=== PATIENT | female | born 1980 | race Caucasian/White ===

== ENCOUNTER 2018-05-30 15:41 | Observation (INO) | payer OTHER ==
[~2018-05-30] VITALS: Ht 152.4 cm; Wt 93.8 kg
[2018-05-30] MEDS ORDERED: PREN1TAB71 PO (15:54)
[2018-05-30] MEDS ORDERED: FERR134T PO (15:55)
[2018-05-30 15:57] VITALS: BP 129/76; Ht 152.4 cm; Wt 93.8 kg
--- NOTE | 2018-05-30 16:07 | TRIAGE ---
OB Triage Datetime Report Generated by CPN: 05/30/2018 16:07 Datetime: 05/30/2018 16:00 Stage of : OB Triage Assessment Type: Triage Maternal Assessment Level of Consciousness: Fully Conscious DTR's/Clonus: DTRs 2+; No Clonus Headache: Denies Blurred Vision: No Respiratory Effort: Unlabored; Regular Rhythm; Equal Expansion Breath Sounds, Left: Clear and Equal Breath Sounds, Right: Clear and Equal Nausea/Vomiting: Denies RUQ Epigastric Pain: Denies Lower Extremities Edema: None Degree: None Upper Extremities Edema: None Degree: None Facial Edema: None Temperature Route: Oral Fall Risk Assessment History of Falling: (0) No Secondary Diagnosis: (0) No Ambulatory Aid: (0) Bedrest/Nurse Assist IV Therapy: (0) No Gait: (0) Normal/Bedrest/Immobile Mental Status: (0) Oriented to Own Ability Fall Score: 0 Fall Risk Score Definition: No Risk: No action required Labor Evaluation Monitor Mode: External Heart Rate FHR Baseline Rate: 135 Monitor Mode: External US Variability: Moderate 6-25 bpm Accelerations: 15X15 Category: Category I Datetime: 05/30/2018 14:26 EGA: 34.1 Time Provider Notified: 05/30/2018 16:05 Provider Notified: dr. richardson Datetime: 05/30/2018 14:25 Time of Arrival: 05/30/2018 15:35 Arrived By: Ambulatory Arrived From: Dr. Hartman Chief Complaint: sent from t clinic for r/o srom Movement: Present Contractions: Denies/Absent Rupture of Membranes: Ruptured Vaginal Bleeding: None Vaginal Discharge: Present Recent Sexual Intercouse: Denies Abdominal Trauma: Not Applicable Patient Complaints: Other Additional Patient Complaints: leaking Time Provider Notified: 05/30/2018 16:06 Provider Notified: dr. richardson
[2018-05-30] MEDS ORDERED: LACTATED RINGER'S 1,000 ML IV SCH (16:17)
--- NOTE | 2018-05-30 16:50 | HP ---
Date/Time of Note Date/Time of Note DATE: 05/30/18 TIME: 16:48 OB - History Hx of Present Free Text/Dictation @34+wks GA with Low KAI ,She reports fluid loss : 1 Para: 0 Care: Good Care Ultrasounds: Normal mid trimester US Obstetrical Complications: None Medical Complications: None Past Family/Social History * Past Medical, Surgical, Family and Obstetric Histories reviewed from chart. OB Admission Exam Vital Signs Vital Signs Vital Signs Date Temp Pulse Resp B/P (MAP) Pulse Ox O2 O2 Flow FiO2 Time Delivery Rate 05/30/18 98.6 129/76 15:57 (93) Physical Exam Abdomen: WNL Extremities: Normal Cervical Dilatation: None Effacement: 0% Station: Ballotable Heart Rate: 140's Accelerations: Accelerations Present Decelerations: No Decelerations Varibility: Moderate OB Assessment/Plan Reason for admission: observation Plan: Expectant Management Other plan: IV Hydration Rom plus test Perinatology consult CHENG VELAZQUEZ M.D. May 30, 2018 16:50
--- NOTE | 2018-05-30 20:06 | HP ---
Date/Time of Note Date/Time of Note DATE: 05/30/18 TIME: 19:57 OB - History Hx of Present Free Text/Dictation 37 YO G1 with EDC 07/10/2018 with IUP at 34 weeks who reported to T office for antepartum testing. indication for APT was + AFP (+ for NTD). KAI was 5 cm. she also has placenta previa. she reported small amount of loss of fluid per vagina, but speculum exam was negative for Nitrazine and Pooling and ROM+ test was negative. she denies vaginal bleeding, uterine contractions. she reports good FM. Care: Good Care Ultrasounds: Normal mid trimester US Obstetrical Complications: None, Other (AFP + and placenta previa) Medical Complications: None Past Family/Social History * Past Medical, Surgical, Family and Obstetric Histories reviewed from chart. OB Admission Exam Vital Signs Vital Signs Vital Signs Date Temp Pulse Resp B/P (MAP) Pulse Ox O2 O2 Flow FiO2 Time Delivery Rate 05/30/18 98.6 129/76 15:57 (93) Physical Exam HEENT: WNL Heart: Rhythm Normal Lungs: Clear, Equal Abdomen: WNL Extremities: Normal Reflexes: Normal OB Assessment/Plan Other Assessment: IUP at 34 weeks Placenta Previa Oligohydramnios Other plan: IV hydration and then repeat KAI ALECIA RIGGINS MD May 30, 2018 20:05
[2018-05-31] MEDS ORDERED: FERROUS SULFATE (EC) 325 MG TAB PO SCH (09:00)
[2018-05-31] MEDS ORDERED: PRENATAL VITAMIN PO SCH (09:00)
--- NOTE | 2018-06-01 07:25 | DS ---
Date/Time of Note Date/Time of Note DATE: 06/01/18 TIME: 07:22 Obstetrical Discharge Record Final Diagnosis Final Diagnosis: not delivered Other Final Diagnosis patient with IUP at 34 weeks who reported to NST office and was found to have KAI 4 cm. Exam was negative for PPROM and ROM Plus was also negative. she received IV and oral hydration. repeat KAI was normal. she denies vaginal bleeding or UCs. she only had vaginal discharge, which was misinterpreted in the records apparently by [facility]. Complications Other (AFP +) Augmentation: No Induction: No Rupture of Membranes: No Condition on Discharge Physical Assessment Voiding: Yes Bowel Movement: Yes Breast: Soft, non-tender, Filling Fundus: Firm Abdomen and Incision: soft, gravid, not tender Calf Tenderness: No Patient Condition: Good ALECIA RIGGINS MD Jun 01, 2018 07:25
== END 2018-05-30 23:46 | disposition home or self-care (01) ==
LOC: OBT 15:41 → L-D 15:43 → OBT 16:05 → L-D 16:05 → INTOOBSV 16:05 → L-D 23:18
PROVIDERS: ADMIT Specialist; ATTEND Specialist
DX: O60.03 Preterm labor without delivery, third trimester (principal); O44.03 Complete placenta previa NOS or without hemorrhage, third trimester; O41.03X0 Oligohydramnios, third trimester, not applicable or unspecified; Z3A.34 34 weeks gestation of pregnancy
CPT/HCPCS: 76815; 84112; J7120; Z7500; 99217; G0378; G0463

== ENCOUNTER 2018-06-01 12:10 | Inpatient (IN) | payer OTHER ==
[~2018-06-01] VITALS: Ht 152.4 cm; Wt 93.0 kg
[~2018-06-01 12:10] MED LIST: FERR134T PO; PREN1TAB71 PO
[2018-06-01] MEDS ORDERED: AL HYDROX/MG HYDROX/SIMETH 30 ML CUP PO PRN (13:00)
[2018-06-01] MEDS ORDERED: ACETAMINOPHEN 325 MG TAB PO PRN (13:00)
[2018-06-01 13:03] VITALS: Ht 152.4 cm; Wt 93.0 kg
[2018-06-01 13:05] VITALS: BP 118/79; PULSE 114; RESP 20
[2018-06-01] MEDS: LACTATED RINGER'S 1,000 ML IV SCH ×2 (13:10→19:10)
[2018-06-01] MEDS: DEXAMETHASONE 4 MG/ML 5 ML INJ IM SCH (14:34)
[2018-06-01] MEDS: FERROUS SULFATE (EC) 325 MG TAB PO SCH (17:02)
[2018-06-01] MEDS: PRENATAL VITAMIN PO SCH (17:02)
[2018-06-02] MEDS: DEXAMETHASONE 4 MG/ML 5 ML INJ IM SCH ×2 (02:19→14:15)
[2018-06-02] MEDS: LACTATED RINGER'S 1,000 ML IV SCH ×3 (02:26→22:32)
[2018-06-02] MEDS: FERROUS SULFATE (EC) 325 MG TAB PO SCH (10:06)
[2018-06-02] MEDS: DOCUSATE SODIUM 100 MG CAP PO SCH (10:08)
[2018-06-02] MEDS: PRENATAL VITAMIN PO SCH (10:16)
--- NOTE | 2018-06-02 15:24 | HP ---
Date/Time of Note Date/Time of Note DATE: 06/02/18 TIME: 15:12 OB - History Hx of Present Free Text/Dictation 37 YO G1 with IUP at 34.4 weeks and EDC 07/10/2018. her is complicated by + AFP and placenta previa. on her last sono with [facility] perinatologist (Dr. Carter), she also had evolving IUGR and KAI 5.9 cm and anterior complete previa and breech. Dr. Carter recommended to admit patient and give steroids and proceed with . patient has an important appointment with immigration on 06/05 and she would like to postpone the delivery until then. Care: Good Care Ultrasounds: Abnormal US findings (placenta previa and growth restriction and KAI 5.9 cm) Medical Complications: None Past Family/Social History * Past Medical, Surgical, Family and Obstetric Histories reviewed from chart. OB Admission Exam Vital Signs Vital Signs Vital Signs Date Temp Pulse Resp B/P (MAP) Pulse Ox O2 O2 Flow FiO2 Time Delivery Rate 06/01/18 98.8 114 20 118/79 Room Air 13:05 (92) Physical Exam HEENT: WNL Heart: Rhythm Normal Lungs: Clear, Equal Abdomen: WNL Extremities: Normal Reflexes: Normal Last 72 hours Lab Results CBC & BMP 06/01/18 13:15 OB Assessment/Plan Other Assessment: IUP 34.4 weeks KAI 5.9 cm placenta previa Breech growth restriction Other plan: Steroids. then proceed with delivery risks of leaving the hospital AMA d/w pt and her partner. they have a very good understanding of why the is high risk and potential risks of leaving AMA including bleeding or IUFD. I discussed with the patient and her partner the risks, benefits, indications, and alternatives of procedure including but not limited to risks of infection, bleeding, damage to other organs, bowel, bladder, hernia formation, scar formation, possibility of blood transfusion, possible need for emergency hysterectomy. I specifically explained that they are at higher risk for blood transfusion and hysterectomy. She was allowed to ask questions. All her questions were answered. Informed consent has been obtained. ALECIA RIGGINS MD Jun 02, 2018 15:23
[2018-06-03] MEDS: DEXAMETHASONE 4 MG/ML 5 ML INJ IM SCH (02:07)
[2018-06-03] MEDS: LACTATED RINGER'S 1,000 ML IV SCH ×3 (07:18→22:38)
[2018-06-03] MEDS: PRENATAL VITAMIN PO SCH (10:29)
[2018-06-03] MEDS: DOCUSATE SODIUM 100 MG CAP PO SCH (10:29)
[2018-06-03] MEDS: FERROUS SULFATE (EC) 325 MG TAB PO SCH (10:29)
[2018-06-04] MEDS: LACTATED RINGER'S 1,000 ML IV SCH ×2 (08:32→16:00)
[2018-06-04] MEDS: PRENATAL VITAMIN PO SCH (08:36)
[2018-06-04] MEDS: DOCUSATE SODIUM 100 MG CAP PO SCH (08:36)
--- NOTE | 2018-06-04 08:50 | DS ---
Date/Time of Note Date/Time of Note DATE: 06/04/18 TIME: 08:45 Obstetrical Discharge Record Final Diagnosis Final Diagnosis: not delivered Other Final Diagnosis 37 YO G1 with IUP at 34.4 weeks and EDC 07/10/2018. her is complicated by + AFP and placenta previa. on her last sono with [facility] perinatologist (Dr. Carter), she also had evolving IUGR and KAI 5.9 cm and anterior complete previa and breech. Dr. Carter recommended to admit patient and give steroids and proceed with . patient has an important appointment with immigration on 06/05 and she would like to postpone the delivery until then. I spoke to Dr. Carter regarding this issue. Dr. Carter agrees that it is reasonable to postpone the delivery one more day. I explained the situation to patient in her holy cross language using RN who spoke Serbian. she understands why she needs to deliver prematurely and she is is aware of he risks to her health as well as risk of IUFD. she believes missing the immigration appointment will have severe and far reaching consequences. she is making an informed decision to postpone the delivery until tomorrow. Complications Other (IUGR, Placenta previa, Oligohydramnios) Rupture of Membranes: No Condition on Discharge Physical Assessment Voiding: Yes Bowel Movement: Yes Breast: Soft, non-tender, Filling, Other (soft, gravid) Calf Tenderness: No Patient Condition: Good ALECIA RIGGINS MD Jun 04, 2018 08:50
[2018-06-04] MEDS: FERROUS SULFATE (EC) 325 MG TAB PO SCH (16:00)
== END 2018-06-04 18:43 | disposition home or self-care (01) | DRG 832 ==
LOC: L-D 12:10 → EDSTATUS 07-10 12:09
PROVIDERS: ADMIT Specialist; ATTEND Specialist
DX: O44.03 Complete placenta previa NOS or without hemorrhage, third trimester (principal); O41.03X0 Oligohydramnios, third trimester, not applicable or unspecified; O36.5930 Maternal care for other known or suspected poor fetal growth, third trimester, not applicable or unspecified; O32.1XX0 Maternal care for breech presentation, not applicable or unspecified; O09.513 Supervision of elderly primigravida, third trimester; Z3A.34 34 weeks gestation of pregnancy
CPT/HCPCS: 85025; 85610; 85730; 86592; 86850; 86900; 86901; 87340; J1100; J7120

== ENCOUNTER 2018-06-05 11:19 | Inpatient (IN) | payer OTHER ==
[~2018-06-05] VITALS: Ht 152.4 cm; Wt 95.5 kg
[~2018-06-05 11:19] MED LIST changes: +CARBOPROST 250 MCG INJ ONE; +METHYLERGONOVINE 0.2 MG INJ ONE; +OXYTOCIN 30 UNITS/LR 500 ML BAG IV ONE
[2018-06-05] MEDS ORDERED: CARBOPROST 250 MCG INJ IM PRN (12:00)
[2018-06-05] MEDS ORDERED: OXYTOCIN 30 UNITS/LR 500 ML IV PRN (12:00)
[2018-06-05] MEDS ORDERED: MISOPROSTOL 200 MCG TAB PR PRN ×2 (12:00→18:30)
[2018-06-05] MEDS ORDERED: CEFAZOLIN 2 GM/50 ML (PMX) 50 ML IVPB SCH (12:00)
[2018-06-05] MEDS ORDERED: METHYLERGONOVINE 0.2 MG INJ IM PRN (12:00)
[2018-06-05 12:20] VITALS: BP 102/65; PULSE 98; RESP 18
[2018-06-05] MEDS ORDERED: LACTATED RINGER'S 1,000 ML IV SCH ×2 (12:40→18:28)
--- NOTE | 2018-06-05 14:31 | NSTRPT ---
NST Information Datetime Report Generated by CPN: 06/05/2018 14:31 Datetime: 05/30/2018 14:26 NST Information EGA: 34.1 Datetime: 05/30/2018 13:37 Test Number: 1 Time on Monitor: 05/30/2018 14:20 Time off Monitor: 05/30/2018 14:42 NST Duration (Min): 22 Reason for NST: Other Reason for NST Other: Abnormal AFP Test and Monitor Explained: Monitor Explained; Test Explained; Verbalized Understanding Pulse: 114 Resp: 18 SBP: 148 DBP: 82 Test Evaluation NST Interventions: Reposition Patient Patient States Movement: Present Contraction Frequency: NONE FHR Baseline : 145 Variability: Moderate 6-25bpm Accelerations: 15X15 Decelerations: None FHR Category: Category I NST Results: Reactive Comments: pt to u/s. KAI 5.4cm. [facility]. Electronically Signed By E-Signature: with User ID: [id number]
--- NOTE | 2018-06-05 17:44 | PREAC ---
Date/Time of Note Date/Time of Note DATE: 06/05/18 TIME: 17:42 Anesthesia Eval and Record Evaluation Time Pre-Procedure Interview DATE: 06/05/18 TIME: 17:42 Age 37 Sex female NPO: 8 hrs Preoperative diagnosis complete previa Planned procedure c section Past Medical History Past Medical History: Includes GI: Obesity Surgery & Anesthesia Issues No known issue Meds Anticoagulation: No Beta Abida within 24 hr: No Reason Beta Abida not given: Pt. not on B-Abida Reported Medications Ferrous Sulfate (Iron) 134 Mg Tablet, 134 MG PO, TAB 05/30/18 Vit No.130/Iron/FA ( Tablet) 1 Each Tablet, 1 EACH PO 05/30/18 Current Medications Cefazolin Sodium/ Dextrose 50 ml @ 100 mls/hr ONCE IVPB ; Start 06/05/18 at 12:00 Oxytocin/Lactated Ringer's 500 ml @ 125 mls/hr POST IV ; Start 06/05/18 at 12:00 Oxytocin/Lactated Ringer's 500 ml @ 0 mls/hr ONCE PRN IV .VAGINAL BLEEDING; Start 06/05/18 at 12:00 Methylergonovine Maleate (Methergine) 0.2 mg ONCE PRN IM .VAGINAL BLEEDING; Start 06/05/18 at 12:00 Carboprost Tromethamine (Hemabate) 250 mcg ONCE PRN IM .VAGINAL BLEEDING; Start 06/05/18 at 12:00 Misoprostol (Cytotec) 1,000 mcg ONCE PRN IA .VAGINAL BLEEDING; Start 06/05/18 at 12:00 Lactated Ringer's 1,000 ml @ 125 mls/hr Q8H IV ; Start 06/05/18 at 12:40 Meds reviewed: Yes Allergies Coded Allergies: No Known Drug Allergies (Verified Allergy, Unknown, 05/30/18) Allergies Reviewed: Yes Labs/Studies Labs Reviewed: Reviewed by anesthesiologist Result Diagram: 06/05/18 1225 Laboratory Tests 06/05/18 12:25 Blood Bank Test 06/05/18 12:25 Antibody Screen NEGATIVE Blood Product Summary Counts Blood Type O POSITIVE Crossmatch Red Blood Cells Rh Immune Globulin Candidate NO test: N/A Pre-procedure Exam Last vitals Vital Signs Date Temp Pulse Resp B/P (MAP) Pulse Ox O2 O2 Flow FiO2 Time Delivery Rate 06/05/18 97.8 98 18 102/65 96 Room Air 12:20 (77) Airway: Adequate mouth opening, Adequate thyromental dist Mallampati: Mallampati IV Teeth: Normal Lung: Normal Heart: Normal ASA Physical Status ASA physical status: 2 Emergency: None Pre-operative Attestations Prior to commencing anesthesia and surgery, the patient was re-evaluated, there was verification of: *The patient's identity *The results of appropriate recent lab work and preoperative vital signs *The above evaluation not changing prior to induction *Anesthetic plan, risk benefits, alternative and complications discussed with patient/family; questions answered; patient/family understands, accepts and wishes to proceed. JAYDE GANDHI DO Jun 05, 2018 17:43
--- NOTE | 2018-06-05 18:28 | HP ---
Date/Time of Note Date/Time of Note DATE: 06/05/18 TIME: 18:22 OB - History Hx of Present Free Text/Dictation 37 YO G1 with IUP at 35 weeks and EDC 07/10/2018. her is complicated by + AFP and placenta previa. on her last sono with [facility] perinatologist (Dr. Carter), she also had evolving IUGR and KAI 5.9 cm and anterior complete previa and breech. Dr. Carter recommended to admit patient and give steroids and proceed with . Care: Good Care Ultrasounds: Other (placenta previa, oligo, breech, growth restriction) Obstetrical Complications: Growth Restriction, Other (placenta previa, oligo, breech, growth restriction) Medical Complications: None Past Family/Social History * Past Medical, Surgical, Family and Obstetric Histories reviewed from chart. OB Admission Exam Vital Signs Vital Signs Vital Signs Date Temp Pulse Resp B/P (MAP) Pulse Ox O2 O2 Flow FiO2 Time Delivery Rate 06/05/18 97.8 98 18 102/65 96 Room Air 12:20 (77) Physical Exam HEENT: WNL Heart: Rhythm Normal Lungs: Clear, Equal Abdomen: WNL Extremities: Normal Reflexes: Normal Last 72 hours Lab Results CBC & BMP 06/05/18 12:25 OB Assessment/Plan Other Assessment: IUP 35 weeks placenta previa oligohydramnios breech growth restriction Dr. Carter recommended to proceed with deliver at this time Plan: Section Other plan: I discussed with the patient the risks, benefits, indications, and alternatives of procedure including but not limited to risks of infection, bleeding, damage to other organs, bowel, bladder, hernia formation, scar formation, possibility of blood transfusion, possible need for emergency hysterectomy. I specifically explained to patient that she is at higher risk for blood transfusion and emergency hysterectomy due to placenta previa. She was allowed to ask questions. All her questions were answered. Informed consent has been obtained. ALECIA RIGGINS MD Jun 05, 2018 18:28
[2018-06-05] MEDS ORDERED: NA PHOSPHATE/BIPHOS 133 ML ENEMA PR PRN (18:30)
[2018-06-05] MEDS ORDERED: OXYCODONE/ACETAMINOPHEN (5/325) TAB PO PRN (18:30)
[2018-06-05] MEDS ORDERED: morphine SULFATE/PF (10 MG/10 ML) INJ ONE (18:33)
[2018-06-05] MEDS ORDERED: METOCLOPRAMIDE 10 MG INJ ONE (18:48)
[2018-06-05] MEDS ORDERED: ONDANSETRON 4 MG INJ ONE (18:48)
[2018-06-05] MEDS ORDERED: FAMOTIDINE 20 MG INJ ONE (18:49)
[2018-06-05] MEDS ORDERED: DEXAMETHASONE 4 MG/ML 1 ML INJ ONE (18:49)
[2018-06-05] MEDS ORDERED: PHENYLephrine (100 MCG/ML) 5ML SYG ONE (18:50)
[2018-06-05] MEDS ORDERED: MIDAZOLAM 1 MG/ML 2 ML INJ ONE (18:52)
[2018-06-05] MEDS ORDERED: NALOXONE (0.4 MG/ML) INJ IV PRN (19:30)
[2018-06-05] MEDS ORDERED: ONDANSETRON 4 MG INJ IV PRN (19:30)
[2018-06-05] MEDS ORDERED: HYDROmorphONE 0.5 MG/0.5 ML SYG IV PRN ×2 (19:30)
[2018-06-05] MEDS ORDERED: DIPHENHYDRAMINE 50 MG INJ IV PRN (19:30)
[2018-06-05] MEDS ORDERED: ZOLPIDEM 5 MG TAB PO PRN (19:30)
[2018-06-05] MEDS: OXYTOCIN 30 UNITS/LR 500 ML IV SCH (19:58)
[2018-06-05] MEDS ORDERED: DIPHENOXYLATE/ATROPINE TAB PO PRN (20:00)
--- NOTE | 2018-06-05 20:01 | OPR ---
Date/Time of Note Date/Time of Note DATE: 06/05/18 TIME: 19:43 Operative Report Procedure Date: Jun 05, 2018 Preoperative Diagnosis IUP at 35 weeks Placenta Previa Oligohydramnios Growth restriction Dr. Carter recommended to proceed with Delivery Postoperative Diagnosis Same Dense pelvic adhesions (see Findings) Operation/Procedure Performed Primary Delivery Surgeon Stephanie Parra MD Welder Apprentice Arc Dr. Rikki Saleh Anesthesia Type: spinal Anesthesiologist: JADYE GANDHI DO Estimated Blood Loss: other (700) Transfusion none Specimen none Grafts/Implants none Tubes/Drains Alvarez Cath Complications none Pt Condition Post Procedure: stable Disposition: PACU Procedure Description Findings: Right ovary is densely adherent on the anterior surface of the uterus. the right fallopian tube was traveling under the ovary and the fimbriated portion could be visualized. Left tube was adherent to left ovary. Left Ovary was also adherent to uterus but was not misplaced like the right the ovary. Serosa of the uterus looked different as if covered by a filmy layer. This is a very unusual finding and obviously was due to either severe PID and/or severe endometriosis in the past. These findings were explained to patient. Consent: The risks, benefits, indications, alternatives of procedure including, but not limited to risk of infection, bleeding, damage to other organs, bowel, bladder, hernia formation, scar formation, possibility of blood transfusions were discussed with the patient. She was allowed to ask questions. All her questions were answered. Informed consent was obtained. DESCRIPTION OF PROCEDURE: She was taken to the operating room. Spinal anesthesia was induced. She was prepped and draped in the usual sterile fashion. Surgical time out one. Anesthesia was tested to be adequate. With permission from anesthesiologist, a knife was used to make a Pfannenstiel skin incision. The incision was taken down in layers. The fascia was cut, undermined and from the underlying muscle using sharp and blunt dissection. All the bleeders were cauterized. Peritoneum was entered bluntly. A low transverse incision was developed over the uterus. Complete previa noted and I had to go through the placenta to deliver the baby. Amniotic fluid was clear and adequate. A viable female infant in double footling breech presentation was delivered without any difficulty. The cord was clamped and cut, handed to awaiting team. Placenta was then delivered. Uterus was exteriorized, wrapped around a moist lap. Inside uterus was cleaned using a dry lap. All residual membranes were removed. The uterine incision was then closed using #1 Monocryl in 2 layers. We noticed that the right ovary is densely adherent on the anterior surface of the ovary. the right fallopian tube was traveling under the ovary and the fimbriated portion could be visualized. This is a very unusual finding and obviously was due to either severe PID or severe endometriosis in the past. We also noted bleeding from the right ovary. 2-0 Chromic on SH was used to stop the bleeding. The uterus was inserted back inside the abdominal cavity. Irrigation was done carefully. Careful evaluation of the uterine incision revealed no further bleeding. The right ovary was evaluated carefully. There was no bleeding. The peritoneum and rectus muscles and fascia were evaluated. All bleeders cauterized. Peritoneum was closed using 2-0 Monocryl. At this time, the count was correct. Rectus muscle was reapproximated using 2-0 Monocryl. Rectus fascia was closed using #1 Vicryl. Subcutaneous tissue was cleaned and irrigated. All bleeders cauterized and the skin closed using 4-0 Monocryl. All counts correct. STEPHANIE PARRA MD Jun 05, 2018 19:53
--- NOTE | 2018-06-05 20:09 | PAC ---
Date/Time of Note Date/Time of Note DATE: 06/05/18 TIME: 20:08 Post-Anesthesia Notes Post-Anesthesia Note Last documented vital signs Vital Signs Date Temp Pulse Resp B/P (MAP) Pulse Ox O2 O2 Flow FiO2 Time Delivery Rate 06/05/18 98 85 18 109/63 96 Room Air 1999 Activity: WNL Respiratory function: WNL Cardiovascular function: WNL Mental status: Baseline Pain reasonably controlled: Yes Hydration appropriate: Yes Nausea/Vomiting absent: Yes JAYDE GANDHI DO Jun 05, 2018 20:09
[2018-06-05] MEDS: SENNA/DOCUSATE NA (8.6MG/50MG) TAB PO SCH (21:00)
[2018-06-05 22:45] VITALS: BP 119/78; PULSE 83; RESP 18
[2018-06-05 23:45] VITALS: BP 113/61; PULSE 81; RESP 18
[2018-06-06 04:00] VITALS: BP 126/83; PULSE 81; RESP 20
[2018-06-06] MEDS: IBUPROFEN 600 MG TAB PO SCH ×4 (06:00→18:00)
[2018-06-06] MEDS: OXYTOCIN 30 UNITS/LR 500 ML IV SCH (06:34)
--- NOTE | 2018-06-06 08:00 | QN ---
Documentation Comment s/p c/s Subjective: no complaint Objective: Afebrile, VSS NAD A&O Abdomen: soft, appropriate tender Incision: no sign of bleeding/infection mild lochia Extremity: 1+ edema bilaterally Assessment: S/p C/S POD # 1 Recovering Well Plan: current care ALECIA RIGGINS MD Jun 06, 2018 08:00
[2018-06-06 08:30] VITALS: BP 116/62; PULSE 80; RESP 17
[2018-06-06] MEDS: SENNA/DOCUSATE NA (8.6MG/50MG) TAB PO SCH ×2 (09:21→22:43)
[2018-06-06] MEDS: KETOROLAC 30 MG INJ IV PRN ×2 (10:36→18:16)
[2018-06-06] MEDS: LACTATED RINGER'S 1,000 ML IV SCH ×2 (11:03→19:00)
[2018-06-06 12:53] VITALS: BP 123/56; PULSE 77; RESP 14
[2018-06-06] MEDS: LANOLIN HPA 1 PKT TOP PRN (12:55)
[2018-06-06 16:08] VITALS: BP 89/51; PULSE 75; RESP 16
[2018-06-06 20:30] VITALS: BP 102/72; PULSE 79; RESP 18
[2018-06-07] MEDS: IBUPROFEN 600 MG TAB PO SCH ×5 (00:12→23:44)
[2018-06-07] MEDS: LACTATED RINGER'S 1,000 ML IV SCH (00:57)
[2018-06-07 04:00] VITALS: BP 99/56; PULSE 83; RESP 17
[2018-06-07 08:00] VITALS: BP 103/65; PULSE 81; RESP 18
[2018-06-07] MEDS: SENNA/DOCUSATE NA (8.6MG/50MG) TAB PO SCH ×2 (09:22→23:44)
--- NOTE | 2018-06-07 11:15 | QN ---
Documentation Comment s/p c/s Subjective: no complaint Objective: Afebrile, VSS NAD A&O Abdomen: soft, appropriate tender Incision: no sign of bleeding/infection mild lochia Extremity: 1+ edema bilaterally Assessment: S/p C/S POD # 2 Recovering Well Plan: current care ALECIA RIGGINS MD Jun 07, 2018 11:15
[2018-06-07 16:00] VITALS: BP 117/80; PULSE 86; RESP 18
[2018-06-07] MEDS: OXYCODONE/ACETAMINOPHEN (5/325) TAB PO PRN ×2 (16:40→23:44)
[2018-06-07 19:35] VITALS: BP 112/69; PULSE 74; RESP 20
[2018-06-08 04:22] VITALS: BP 101/76; PULSE 89; RESP 18
[2018-06-08] MEDS: IBUPROFEN 600 MG TAB PO SCH ×4 (05:42→23:28)
[2018-06-08 08:03] VITALS: BP 119/72; PULSE 72; RESP 19
--- NOTE | 2018-06-08 08:41 | DS ---
Date/Time of Note Date/Time of Note DATE: 06/08/18 TIME: 08:37 Obstetrical Discharge Record Final Diagnosis Final Diagnosis: delivered Section Section: Primary Primary Indication she underwent c/s for placenta previa, IUGR and oligohydramnios. she had significant adhesions noted during the surgery. post op recovery was uneventful. she had BM, tolerating regular diet and good pain control on oral meds. Complications Other (IUGR, Oligohydramnios and placenta previa) Augmentation: No Induction: No Rupture of Membranes: No Condition on Discharge Physical Assessment Voiding: Yes Bowel Movement: Yes Breast: Soft, non-tender, Filling Fundus: Firm Abdomen and Incision: soft, appropriate tenderness. Incision is clean and without any sign of infection. Calf Tenderness: No Patient Condition: Good ALECIA RIGGINS MD Jun 08, 2018 08:41
[2018-06-08] MEDS: SENNA/DOCUSATE NA (8.6MG/50MG) TAB PO SCH ×2 (08:48→20:50)
[2018-06-08] MEDS ORDERED: MEASLES,MUMPS,RUBELLA VACCINE INJ SC* ONE (09:00)
[2018-06-08] MEDS ORDERED: DIPHTH/TET/ACEL PERTUSS (ADULT) 0.5 ML VIAL IM* ONE (09:00)
[2018-06-08] MEDS: LANOLIN HPA 1 PKT TOP PRN (11:50)
[2018-06-08 15:55] VITALS: BP 119/65; PULSE 70; RESP 18
[2018-06-08 20:15] VITALS: BP 118/82; PULSE 86; RESP 15
[2018-06-08] MEDS: OXYCODONE/ACETAMINOPHEN (5/325) TAB PO PRN (20:51)
[2018-06-09 04:00] VITALS: BP 100/58; PULSE 89; RESP 16
[2018-06-09] MEDS: IBUPROFEN 600 MG TAB PO SCH (05:29)
[2018-06-09 08:00] VITALS: BP 113/70; PULSE 89; RESP 16
[2018-06-09] MEDS: SENNA/DOCUSATE NA (8.6MG/50MG) TAB PO SCH (09:50)
[2018-06-09 16:00] VITALS: BP 135/88; PULSE 88; RESP 18
== END 2018-06-09 13:55 | disposition home or self-care (01) | DRG 787 ==
LOC: L-D 11:19 → PP1 22:30
PROVIDERS: ADMIT Specialist; ATTEND Specialist
PROC: 10D00Z1 Extraction of Products of Conception, Low, Open Approach (ICD-10-PCS; principal; 2018-06-05 18:00)
DX: O44.03 Complete placenta previa NOS or without hemorrhage, third trimester (principal); O41.03X0 Oligohydramnios, third trimester, not applicable or unspecified; O36.5930 Maternal care for other known or suspected poor fetal growth, third trimester, not applicable or unspecified; O99.214 Obesity complicating childbirth; O99.89 Other specified diseases and conditions complicating pregnancy, childbirth and the puerperium; N73.6 Female pelvic peritoneal adhesions (postinfective); O32.8XX0 Maternal care for other malpresentation of fetus, not applicable or unspecified; Z3A.35 35 weeks gestation of pregnancy; Z37.0 Single live birth
CPT/HCPCS: 85025; 85610; 85730; 86592; 86850; 86900; 86901; 86920; 87340; 88307; 99464; J0690; J1100; J1885; J2210; J2250; J2274; J2370; J2405; J2590; J2765; J3010; J7120